=== PATIENT | male | born 2000 | race Caucasian/White ===

== ENCOUNTER 2020-01-11 05:48 | Outpatient (CLI) | payer BC ==
[~2020-01-11 05:48] MED LIST: DIAZ2.5K RC; POTA20PA3 PO
[2020-01-11] MEDS ORDERED: DIVA125C PO (11:10)
[2020-01-11] MEDS ORDERED: QUET50TA PO (11:11)
[2020-01-12] MEDS ORDERED: CYCL5TAB PO (07:59)
== END 2020-01-11 11:27 ==
LOC: PREOP 05:48
PROVIDERS: ATTEND Otolaryngology Otolaryngology/Facial Plastic Surgery
DX: Z01.818 Encounter for other preprocedural examination (principal)

== ENCOUNTER 2020-01-12 06:04 | Day surgery (SDC) | payer BC ==
[~2020-01-12] VITALS: Ht 160 cm; Wt 46.0 kg
[2020-01-12] VITALS (8 sets, daily range): BP systolic 91–120; BP diastolic 56–92
[~2020-01-12 06:04] MED LIST changes: +DIVA125C PO; +QUET50TA PO
--- OUTSIDE RECORDS SUMMARY | 2020-01-12 06:09 | XMS REPORT ---
Author Author Say [place] Doctor Organization [facility] Address Unknown Phone Unavailable Care Team Providers Care Asphalt Worker Name Role Phone Migration, Doctor Unavailable Unavailable PROBLEMS Unknown Problems ALLERGIES No Information ENCOUNTERS Encounter Location Date Diagnosis [facility] [address] [facility] [id number] [place] [address] Dec, IMMUNIZATIONS No Known Immunizations SOCIAL HISTORY Never Assessed REASON FOR VISIT [facility] PLAN OF CARE VITAL SIGNS MEDICATIONS Unknown Medications RESULTS No Results PROCEDURES No Known procedures INSTRUCTIONS MEDICATIONS ADMINISTERED No Known Medications
[2020-01-12] MEDS ORDERED: LACTATED RINGERS 1,000 ML IV PRN (06:13)
[2020-01-12] MEDS ORDERED: LIDOCAINE PF 2% 5 ML (XYLOCAINE) VIAL ONE (07:07)
[2020-01-12] MEDS ORDERED: fentaNYL INJECTION 100 MCG/2 ML AMP ONE (07:07)
[2020-01-12] MEDS ORDERED: PROPOFOL INJECTION 50 ML IV ONE (07:07)
[2020-01-12] MEDS ORDERED: ONDANSETRON 4 MG/2 ML (SDV) Z0FRAN ONE (07:07)
[2020-01-12] MEDS ORDERED: proPOfol 200 MG/20 ML (DIPRIVAN) VIAL IV ONE (07:07)
[2020-01-12] MEDS ORDERED: APAP 325 MG/10.15 ML LIQ (TYLENOL) UDC ONE (07:08)
[2020-01-12] MEDS ORDERED: MIDAZOLAM SYRUP (VERSED) 10MG/5ML UDC PO ONE ×2 (07:08→07:15)
[2020-01-12] MEDS ORDERED: LIDOCAINE/EPI 1%-1:100,000 (XYLOCAINE) 20ML ONE (07:14)
[2020-01-12] MEDS ORDERED: APAP 325 MG/10.15 ML LIQ (TYLENOL) UDC PO ONE (07:15)
[2020-01-12] MEDS ORDERED: NS IV 1000 ML 1,000 ML IV SCH (07:43)
--- NOTE | 2020-01-12 07:43 | Progress Note-Post Operative ---
Post-Operative Progess Note Surgeon (s)/Belting Cutter (s) Surgeon YONNY PIMENTEL MD Belting Cutter n/a Pre-Operative Diagnosis Large Right Auricular Hematoma Post-Operative Diagnosis same Post-Op Procedure Note Date of Procedure: Jan 12, 2020 Name of Procedure Performed: I/D Right Auricular Hematoma Description & Findings Description and Findings: n/a Anesthesia Type lma Estimated Blood Loss minimal Packing none. Specimen(s) collected/removed none YONNY PIMENTEL MD Jan 12, 2020 07:43
--- NOTE | 2020-01-12 07:43 | Progress Note-Pre Operative ---
Pre-Operative Progress Note H&P Reviewed The H&P was reviewed, patient examined and no changes noted. Date Seen by Provider: Jan 12, 2020 Time Seen by Provider: 06:30 Date H&P Reviewed: Jan 12, 2020 Time H&P Reviewed: 06:30 Pre-Operative Diagnosis: Large Right Auricular Hematoma YONNY PIMENTEL MD Jan 12, 2020 07:43
[2020-01-12] MEDS ORDERED: APAP 325 MG/10.15 ML LIQ (TYLENOL) UDC PO PRN (07:45)
[2020-01-12] MEDS ORDERED: MUPIROCIN 2% OINT 22 GM (BACTROBAN) TUBE ONE (07:58)
[2020-01-12] MEDS ORDERED: CYCL5TAB PO (07:59)
[2020-01-12] MEDS ORDERED: SEVOFLURANE (ULTANE) 15 ML INHAL SOLN ONE (08:15)
--- NOTE | 2020-01-12 09:10 | Anesthesia-General Post-Op ---
General Patient Condition Mental Status/LOC: Same as Preop Cardiovascular: Satisfactory Nausea/Vomiting: Absent Respiratory: Satisfactory Pain: Controlled Complications: Absent Post Op Complications Complications None Follow Up Care/Instructions Patient Instructions None needed. Anesthesia/Patient Condition Patient Condition Patient is doing well, no complaints, stable vital signs, no apparent adverse anesthesia problems. TERRENCE ROSALES DO Jan 12, 2020 09:10
== END 2020-01-12 09:33 | disposition home or self-care (01) ==
LOC: SDC 06:04
PROVIDERS: ATTEND Otolaryngology Otolaryngology/Facial Plastic Surgery
DX: H61.121 Hematoma of pinna, right ear (principal); G80.9 Cerebral palsy, unspecified; Z11.2 Encounter for screening for other bacterial diseases; Z79.899 Other long term (current) drug therapy
CPT/HCPCS: 87081